=== PATIENT | male | born 1950 | race Caucasian/White ===

== ENCOUNTER → 2020-10-25 | Outpatient (CLI) | payer MEDICARE ==
[~2020-10-25] MED LIST: BENADRYL 25MG C25 MG PO
[2020-10-26 10:14] LABS: CREATININE, URINE 102.6 mg/dL (Not Estab.)
[2020-10-27 21:10] LABS: CHOLESTEROL, TOTAL 149 mg/dL (100-199); HDL SIZE 8.3 nm (>=9.2); HDL-C 40 mg/dL (>39); HDL-P (TOTAL) 31.7 umol/L (>=30.5); LARGE HDL-P <1.3 umol/L (>=4.8); LARGE VLDL-P 3.8 nmol/L (<=2.7); LDL SIZE 20.6 nm (>20.5); LDL SIZE 20.6 nm (>=20.8); LDL-C 78 mg/dL (0-99); LDL-P 824 nmol/L (<1000); LP-IR SCORE 69 (<=45); SMALL LDL-P 352 nmol/L (<=527); TRIGLYCERIDES 179 mg/dL (0-149); VLDL SIZE 44.4 nm (<=46.6)
== END ==
LOC: LAB 08:19
PROVIDERS: Emergency Medicine
DX: E11.65 Type 2 diabetes mellitus with hyperglycemia (principal); E11.69 Type 2 diabetes mellitus with other specified complication; I10 Essential (primary) hypertension; E78.2 Mixed hyperlipidemia
CPT/HCPCS: 36415; 80053; 80061; 82043; 82570; 83036; 83704

== ENCOUNTER → 2021-01-08 | Outpatient (CLI) | payer MEDICARE | LOC: RT 13:07 | DX: I10 Essential (primary) hypertension (principal) | CPT/HCPCS: 93005 ==

== ENCOUNTER → 2021-08-27 | Outpatient (CLI) | payer MEDICARE ==
[2021-08-27 09:32] LABS: HEMOGLOBIN 14.2 gm/dl (14.0-17.5); RED BLOOD COUNT 4.9 M/UL (4.20-5.50); WHITE BLOOD COUNT 7.3 K/UL (4.5-11.0)
[2021-08-28 07:12] LABS: HEMOGLOBIN A1C 6.9 % (4.8-5.6)
[2021-08-28 08:13] LABS: A/G RATIO 1.5 (1.2-2.2); BILIRUBIN, TOTAL 0.3 mg/dL (0.0-1.2); CALCIUM, SERUM 9.4 mg/dL (8.6-10.2); CREATININE, SERUM 1.58 mg/dL (0.76-1.27); CREATININE, URINE 138.5 mg/dL (Not Estab.); GLOBULIN, TOTAL 2.7 g/dL (1.5-4.5); PROTEIN, TOTAL, SERUM 6.8 g/dL (6.0-8.5); TSH 5.22 uIU/mL (0.450-4.500)
[2021-08-29 11:13] LABS: CHOLESTEROL, TOTAL 138 mg/dL (100-199); HDL SIZE 8.2 nm (>=9.2); HDL-C 33 mg/dL (>39); HDL-P (TOTAL) 30.5 umol/L (>=30.5); LARGE HDL-P 1.9 umol/L (>=4.8); LARGE VLDL-P 5.1 nmol/L (<=2.7); LDL SIZE 20.1 nm (>20.5); LDL SIZE 20.1 nm (>=20.8); LDL-C 73 mg/dL (0-99); LDL-P 768 nmol/L (<1000); LP-IR SCORE 74 (<=45); SMALL LDL-P 479 nmol/L (<=527); TRIGLYCERIDES 186 mg/dL (0-149); VLDL SIZE 46.9 nm (<=46.6)
== END ==
LOC: LAB 08:57
PROVIDERS: Emergency Medicine
DX: I12.9 Hypertensive chronic kidney disease with stage 1 through stage 4 chronic kidney disease, or unspecified chronic kidney disease (principal); N18.31 Chronic kidney disease, stage 3a; E78.2 Mixed hyperlipidemia; E11.42 Type 2 diabetes mellitus with diabetic polyneuropathy
CPT/HCPCS: 36415; 80053; 80061; 82043; 82570; 83036; 83704; 84443; 84550; 85025

== ENCOUNTER 2021-11-09 13:39 | Observation (INO) | payer MEDICARE ==
[~2021-11-09] VITALS: Ht 182.9 cm; Wt 107.2 kg
[2021-11-09 14:24] LABS: HEMOGLOBIN 15.3 gm/dl (14.0-17.5); RED BLOOD COUNT 5.11 M/UL (4.20-5.50)
[2021-11-09 14:53] LABS: BUN/CREATININE RATIO 22 (0-10)
[2021-11-09] MEDS ORDERED: CEFDINIR300 MG PO (17:25)
[2021-11-09] MEDS ORDERED: MECLIZINE HCL25 MG PO (17:26)
[2021-11-09] MEDS ORDERED: LOTREL 10-20 M1 EACH PO (17:28)
[2021-11-09] MEDS ORDERED: FENOFIBRATE160 MG PO (17:28)
[2021-11-09] MEDS ORDERED: TOUJEO MAX300 UNIT/1 SQ (17:29)
[2021-11-09] MEDS ORDERED: HUMALOG100 UNIT/3 SQ (17:30)
[2021-11-09] MEDS ORDERED: METOPROLOL SUC200 MG PO (17:31)
[2021-11-09] MEDS ORDERED: PIOGLITAZONE HC30 MG PO (17:32)
[2021-11-09] MEDS ORDERED: PRAVASTATIN SOD40 MG PO (17:32)
[2021-11-10 03:09] LABS: HEMOGLOBIN 13.8 gm/dl (14.0-17.5); RED BLOOD COUNT 4.62 M/UL (4.20-5.50); WHITE BLOOD COUNT 8.4 K/UL (4.5-11.0)
[2021-11-10 03:37] LABS: BUN/CREATININE RATIO 22 (0-10)
[2021-11-10] MEDS ORDERED: TOUJEO MAX300 UNIT/1 SQ (11:22)
[2021-11-10] MEDS ORDERED: HUMALOG100 UNIT/3 SQ (11:22)
[2021-11-11] MEDS ORDERED: AMLODIPINE BESYL5 MG PO (12:16)
[2021-11-11] MEDS ORDERED: METOPROLOL SUC100 MG PO (12:16)
[2021-11-11] MEDS ORDERED: LISINOPRIL10 MG PO (12:16)
[2021-11-11] MEDS ORDERED: ASPIRIN EC81 MG PO (12:16)
== END 2021-11-11 13:30 | disposition home or self-care (01) ==
LOC: ER1 13:39 → CDU 16:12 → PROG CARE 16:12
PROVIDERS: Emergency Medicine; Physician Assistant; ADMIT Internal Medicine
DX: R00.1 Bradycardia, unspecified (principal); Z20.822 Contact with and (suspected) exposure to COVID-19; E78.5 Hyperlipidemia, unspecified; E11.22 Type 2 diabetes mellitus with diabetic chronic kidney disease; I13.0 Hypertensive heart and chronic kidney disease with heart failure and stage 1 through stage 4 chronic kidney disease, or unspecified chronic kidney disease; N18.30 Chronic kidney disease, stage 3 unspecified; I50.32 Chronic diastolic (congestive) heart failure; E83.42 Hypomagnesemia; E87.6 Hypokalemia; I27.20 Pulmonary hypertension, unspecified; Z79.4 Long term (current) use of insulin; Z79.899 Other long term (current) drug therapy; Z85.038 Personal history of other malignant neoplasm of large intestine
CPT/HCPCS: ECHO; 36415; 71045; 78452; 80048; 80053; 80061; 82550; 82553; 82962; 83735; 83880; 84439; 84443; 84484; 85025; 93005; 93306; 99285; A9502; G0378; J2785; U0002